=== PATIENT | female | born 1950 | race Caucasian/White ===

== ENCOUNTER 2022-05-13 10:53 | Inpatient (IN) | payer MEDICARE, OTHER, MEDICAID ==
[~2022-05-13] VITALS: Ht 152.4 cm; Wt 64.1 kg
[2022-05-13] MEDS ORDERED: SODIUM CHLORIDE 0.9% 1,000 ML IV ONE (20:30)
[2022-05-13] MEDS ORDERED: TEMAZEPAM 15 MG CAP PO PRN (21:30)
[2022-05-13] MEDS ORDERED: HYDROcodone-ACET 5/325MG TAB PO PRN (21:30)
[2022-05-13] MEDS ORDERED: cefTRIAXone 1GM/50ML D5W 50 ML IV ONE (21:30)
[2022-05-13] MEDS ORDERED: ONDANSETRON HCL 4 MG/2 ML VIAL IV PRN (21:30)
[2022-05-13] MEDS ORDERED: ACETAMINOPHEN 325 MG TAB PO PRN (21:30)
[2022-05-13 21:55] LABS: Albumin 3.2 g/dL (3.4-5.0); BUN/Creatinine Ratio 24.2; Calcium 9.9 mg/dL (8.5-10.1); Potassium 4.2 mmol/L (3.5-5.1)
[2022-05-13 21:57] LABS: Lactic Acid w/Reflex 4.1 mmol/L (0.4-2.0)
[2022-05-13 22:10] LABS: Bilirubin, Total 0.8 mg/dL (0.2-1.0); CRP High Sensitivity 3.38 mg/dL (< 0.3); Total Protein 8.2 g/dL (6.4-8.2)
[2022-05-14] MEDS: CLINDAMYCIN 600MG IV 50 ML IV SCH ×4 (00:21→22:29)
[2022-05-14 00:34] LABS: Basophils # (auto) 0 10 ^3/uL (0-0.2); Eosinophils # (auto) 0 10 ^3/uL (0-0.8); Eosinophils % (auto) 0.1 % (0.0-7.0); Monocytes # (auto) 0.6 10 ^3/uL (0-1.3); Red Cell Distribution Width 15.8 % (11.8-14.3)
[2022-05-14 00:35] LABS: Basophils % (auto) 0.1 % (0.0-2.0); Hematocrit 54.7 % (36.0-46.0); Hemoglobin 17.8 g/dL (12.2-16.2); Lymphocytes % (auto) 11.9 % (10.0-50.0); Mean Corpuscular Hemoglobin 29.1 pg (28.0-32.0); Mean Corpuscular Hgb Conc. 32.5 g/dL (32.0-36.0); Mean Corpuscular Volume 89.5 fL (80.0-100.0); Monocytes % (auto) 6.5 % (0.0-12.0); Neutrophils % (auto) 81.4 % (37.0-80.0); Nucleated Red Blood Cells % 0.1 %; Red Blood Cells 6.12 10^6/uL (4.0-5.20); White Blood Cell 8.6 10^3/uL (4.4-10.8)
[2022-05-14 07:11] LABS: Basophils # (auto) 0 10 ^3/uL (0-0.2); Basophils % (auto) 0.5 % (0.0-2.0); Eosinophils # (auto) 0 10 ^3/uL (0-0.8); Eosinophils % (auto) 0.3 % (0.0-7.0); Hematocrit 55.4 % (36.0-46.0); Hemoglobin 17.1 g/dL (12.2-16.2); Lymphocytes # (auto) 2.2 10 ^3/uL (0.4-5.4); Lymphocytes % (auto) 23.7 % (10.0-50.0); Mean Corpuscular Hemoglobin 28.8 pg (28.0-32.0); Mean Corpuscular Hgb Conc. 30.8 g/dL (32.0-36.0); Mean Corpuscular Volume 93.5 fL (80.0-100.0); Monocytes # (auto) 0.8 10 ^3/uL (0-1.3); Monocytes % (auto) 8.4 % (0.0-12.0); Neutrophils # (auto) 6.3 10 ^3/uL (1.6-8.6); Neutrophils % (auto) 67.1 % (37.0-80.0); Nucleated Red Blood Cells % 0.2 %; Red Blood Cells 5.93 10^6/uL (4.0-5.20); Red Cell Distribution Width 16.8 % (11.8-14.3); White Blood Cell 9.3 10^3/uL (4.4-10.8)
[2022-05-14 07:43] LABS: Anion Gap 7 (5-15); BUN/Creatinine Ratio 21.9; Blood Urea Nitrogen 14 mg/dL (7-18); Calcium 8.8 mg/dL (8.5-10.1); Carbon Dioxide 27 mmol/L (21-32); Chloride 109 mmol/L (98-107); GFR African American 117 mL/min; GFR Non-African American 97 mL/min; Glucose 93 mg/dL (74-106); Potassium 4.3 mmol/L (3.5-5.1); Sodium 143 mmol/L (136-145)
[2022-05-14] MEDS: ENOXAPARIN SOD 40 MG/0.4 ML SYRINGE SC SCH (09:52)
[2022-05-14 21:15] VITALS: BP 109/57
[2022-05-14] MEDS: cefTRIAXone 1GM/50ML D5W 50 ML IV SCH (21:53)
[2022-05-15] MEDS: CLINDAMYCIN 600MG IV 50 ML IV SCH ×3 (05:20→22:10)
[2022-05-15 09:00] VITALS: BP 108/54
[2022-05-15] MEDS: ENOXAPARIN SOD 40 MG/0.4 ML SYRINGE SC SCH (09:20)
[2022-05-15 13:00] VITALS: BP 103/58
[2022-05-15 15:55] VITALS: BP 117/69
[2022-05-15 16:50] VITALS: BP 117/69
[2022-05-15] MEDS: cefTRIAXone 1GM/50ML D5W 50 ML IV SCH (21:28)
[2022-05-15 22:00] VITALS: BP 144/80
[2022-05-16 04:53] VITALS: BP 137/76
[2022-05-16] MEDS: CLINDAMYCIN 600MG IV 50 ML IV SCH ×3 (05:20→21:35)
[2022-05-16] MEDS: ENOXAPARIN SOD 40 MG/0.4 ML SYRINGE SC SCH (08:44)
[2022-05-16 09:00] VITALS: BP 133/57
[2022-05-16 12:42] VITALS: BP 120/66
[2022-05-16 16:41] VITALS: BP 110/74
[2022-05-16] MEDS: Juven Fruit Punch Powder PACKET 28.8gm PO SCH (18:25)
[2022-05-16] MEDS: cefTRIAXone 1GM/50ML D5W 50 ML IV SCH (21:35)
[2022-05-16 22:00] VITALS: BP 134/66
[2022-05-17 05:00] VITALS: BP 138/77
[2022-05-17] MEDS: CLINDAMYCIN 600MG IV 50 ML IV SCH ×3 (05:16→21:05)
[2022-05-17 08:30] VITALS: BP 143/76
[2022-05-17] MEDS: ENOXAPARIN SOD 40 MG/0.4 ML SYRINGE SC SCH (09:15)
[2022-05-17] MEDS: Juven Fruit Punch Powder PACKET 28.8gm PO SCH ×2 (09:15→18:07)
[2022-05-17 12:30] VITALS: BP_SYST 134; BP_SYST 144; BP_DIAS 67; BP_DIAS 83
[2022-05-17] MEDS ORDERED: CLIN300C8 PO (12:50)
[2022-05-17 17:00] VITALS: BP 114/82
[2022-05-17] MEDS: cefTRIAXone 1GM/50ML D5W 50 ML IV SCH (20:25)
[2022-05-17 22:00] VITALS: BP 127/67
[2022-05-18 05:00] VITALS: BP 147/89
[2022-05-18] MEDS: CLINDAMYCIN 600MG IV 50 ML IV SCH ×3 (05:42→21:41)
[2022-05-18 08:00] VITALS: BP 152/78
[2022-05-18] MEDS: Juven Fruit Punch Powder PACKET 28.8gm PO SCH ×2 (09:12→18:09)
[2022-05-18] MEDS: ENOXAPARIN SOD 40 MG/0.4 ML SYRINGE SC SCH (09:18)
[2022-05-18 12:00] VITALS: BP 146/89
[2022-05-18 16:00] VITALS: BP 118/82
[2022-05-18] MEDS: cefTRIAXone 1GM/50ML D5W 50 ML IV SCH (20:24)
[2022-05-18 22:00] VITALS: BP 119/69
[2022-05-19 05:00] VITALS: BP 121/71
[2022-05-19] MEDS: CLINDAMYCIN 600MG IV 50 ML IV SCH ×3 (05:25→21:28)
[2022-05-19] MEDS: Juven Fruit Punch Powder PACKET 28.8gm PO SCH ×2 (08:41→19:00)
[2022-05-19 09:00] VITALS: BP 145/88
[2022-05-19] MEDS: ENOXAPARIN SOD 40 MG/0.4 ML SYRINGE SC SCH (09:06)
[2022-05-19 13:00] VITALS: BP 127/82
[2022-05-19 17:00] VITALS: BP 116/55
[2022-05-19] MEDS: cefTRIAXone 1GM/50ML D5W 50 ML IV SCH (21:27)
[2022-05-19 22:00] VITALS: BP 140/56
[2022-05-20 05:00] VITALS: BP 129/88
[2022-05-20] MEDS: CLINDAMYCIN 600MG IV 50 ML IV SCH ×3 (05:29→21:38)
[2022-05-20] MEDS: Juven Fruit Punch Powder PACKET 28.8gm PO SCH ×2 (08:30→18:10)
[2022-05-20 09:00] VITALS: BP 146/91
[2022-05-20] MEDS: ENOXAPARIN SOD 40 MG/0.4 ML SYRINGE SC SCH (09:54)
[2022-05-20 12:10] VITALS: BP 129/81
[2022-05-20 17:00] VITALS: BP 121/75
[2022-05-20] MEDS: cefTRIAXone 1GM/50ML D5W 50 ML IV SCH (21:02)
[2022-05-20 22:00] VITALS: BP 112/54
[2022-05-21 05:01] VITALS: BP 121/67
[2022-05-21] MEDS: CLINDAMYCIN 600MG IV 50 ML IV SCH ×3 (05:23→22:52)
[2022-05-21 08:35] VITALS: BP 115/73
[2022-05-21] MEDS: Juven Fruit Punch Powder PACKET 28.8gm PO SCH ×2 (09:41→18:00)
[2022-05-21] MEDS: ENOXAPARIN SOD 40 MG/0.4 ML SYRINGE SC SCH (09:42)
[2022-05-21 13:00] VITALS: BP 107/69
[2022-05-21 16:49] VITALS: BP 148/67
[2022-05-21] MEDS: cefTRIAXone 1GM/50ML D5W 50 ML IV SCH (21:31)
[2022-05-21 22:00] VITALS: BP 121/69
[2022-05-22 05:00] VITALS: BP 126/71
[2022-05-22] MEDS: CLINDAMYCIN 600MG IV 50 ML IV SCH (06:17)
[2022-05-22] MEDS: Juven Fruit Punch Powder PACKET 28.8gm PO SCH ×2 (08:10→18:25)
[2022-05-22 09:00] VITALS: BP 126/89
[2022-05-22] MEDS: ENOXAPARIN SOD 40 MG/0.4 ML SYRINGE SC SCH (10:16)
[2022-05-22 12:38] VITALS: BP 116/69
[2022-05-22 16:53] VITALS: BP 120/65
[2022-05-22] MEDS: cefTRIAXone 1GM/50ML D5W 50 ML IV SCH (21:12)
[2022-05-22 22:00] VITALS: BP 137/72
[2022-05-23 05:00] VITALS: BP 138/75
[2022-05-23] MEDS: Juven Fruit Punch Powder PACKET 28.8gm PO SCH ×2 (08:01→18:00)
[2022-05-23 09:00] VITALS: BP 136/78
[2022-05-23] MEDS: ENOXAPARIN SOD 40 MG/0.4 ML SYRINGE SC SCH (10:04)
[2022-05-23] MEDS ORDERED: CIPROFLOXACIN HCL 500 MG TAB PO ONE (11:30)
[2022-05-23 13:00] VITALS: BP 112/70
[2022-05-23 22:00] VITALS: BP 142/78
[2022-05-23] MEDS: CIPROFLOXACIN HCL 500 MG TAB PO SCH (22:52)
[2022-05-24 05:00] VITALS: BP 144/83
[2022-05-24 09:00] VITALS: BP 158/48
[2022-05-24] MEDS: Juven Fruit Punch Powder PACKET 28.8gm PO SCH ×2 (09:03→18:02)
[2022-05-24 09:37] VITALS: BP 145/82
[2022-05-24] MEDS: ENOXAPARIN SOD 40 MG/0.4 ML SYRINGE SC SCH (10:09)
[2022-05-24] MEDS: CIPROFLOXACIN HCL 500 MG TAB PO SCH ×2 (10:09→21:46)
[2022-05-24 13:00] VITALS: BP 122/76
[2022-05-24 16:40] VITALS: BP 122/76
[2022-05-24 22:00] VITALS: BP_SYST 133; BP_SYST 159; BP_DIAS 60; BP_DIAS 71
[2022-05-25 05:00] VITALS: BP 132/78
[2022-05-25] MEDS: Juven Fruit Punch Powder PACKET 28.8gm PO SCH ×2 (08:12→18:24)
[2022-05-25 09:00] VITALS: BP 118/59
[2022-05-25 09:57] LABS: Basophils # (auto) 0 10 ^3/uL (0-0.2); Basophils % (auto) 0.5 % (0.0-2.0); Eosinophils # (auto) 0.1 10 ^3/uL (0-0.8); Hematocrit 49.5 % (36.0-46.0); Hemoglobin 16.2 g/dL (12.2-16.2); Lymphocytes # (auto) 1.8 10 ^3/uL (0.4-5.4); Lymphocytes % (auto) 20.9 % (10.0-50.0); Mean Corpuscular Hemoglobin 29.1 pg (28.0-32.0); Mean Corpuscular Hgb Conc. 32.7 g/dL (32.0-36.0); Mean Corpuscular Volume 88.9 fL (80.0-100.0); Monocytes # (auto) 0.6 10 ^3/uL (0-1.3); Monocytes % (auto) 7.2 % (0.0-12.0); Neutrophils % (auto) 70.4 % (37.0-80.0); Nucleated Red Blood Cells % 0.1 %; Red Blood Cells 5.56 10^6/uL (4.0-5.20); Red Cell Distribution Width 15.5 % (11.8-14.3); White Blood Cell 8.6 10^3/uL (4.4-10.8)
[2022-05-25] MEDS: ENOXAPARIN SOD 40 MG/0.4 ML SYRINGE SC SCH (10:01)
[2022-05-25] MEDS: CIPROFLOXACIN HCL 500 MG TAB PO SCH ×2 (10:01→22:16)
[2022-05-25 10:11] LABS: Albumin 2.8 g/dL (3.4-5.0); Calcium 8.8 mg/dL (8.5-10.1); Potassium 3.9 mmol/L (3.5-5.1)
[2022-05-25 10:15] LABS: BUN/Creatinine Ratio 28.8; Bilirubin, Total 0.4 mg/dL (0.2-1.0); Total Protein 7.2 g/dL (6.4-8.2)
[2022-05-25 13:00] VITALS: BP 123/61
[2022-05-25 17:00] VITALS: BP 111/60
[2022-05-25 20:00] VITALS: BP 117/59
[2022-05-25 22:00] VITALS: BP 117/59
[2022-05-26 05:00] VITALS: BP 135/82
[2022-05-26] MEDS: Juven Fruit Punch Powder PACKET 28.8gm PO SCH ×2 (08:10→19:01)
[2022-05-26 09:00] VITALS: BP 118/71
[2022-05-26] MEDS: CIPROFLOXACIN HCL 500 MG TAB PO SCH ×2 (10:16→22:20)
[2022-05-26] MEDS: ENOXAPARIN SOD 40 MG/0.4 ML SYRINGE SC SCH (10:16)
[2022-05-26 13:00] VITALS: BP 108/62
[2022-05-26 17:00] VITALS: BP 102/39
[2022-05-26 20:00] VITALS: BP 120/75
[2022-05-26 22:00] VITALS: BP 120/75
[2022-05-27 05:00] VITALS: BP 114/69
[2022-05-27 09:00] VITALS: BP 140/73
[2022-05-27] MEDS: ENOXAPARIN SOD 40 MG/0.4 ML SYRINGE SC SCH (10:16)
[2022-05-27] MEDS: CIPROFLOXACIN HCL 500 MG TAB PO SCH ×2 (10:17→21:37)
[2022-05-27] MEDS: Juven Fruit Punch Powder PACKET 28.8gm PO SCH ×2 (10:18→18:19)
[2022-05-27 13:00] VITALS: BP 126/72
[2022-05-27 17:00] VITALS: BP 125/61
[2022-05-27 22:00] VITALS: BP 133/75
[2022-05-28 05:00] VITALS: BP 130/64
[2022-05-28] MEDS: Juven Fruit Punch Powder PACKET 28.8gm PO SCH ×2 (08:30→18:08)
[2022-05-28 09:10] VITALS: BP 111/61
[2022-05-28] MEDS: CIPROFLOXACIN HCL 500 MG TAB PO SCH ×2 (09:11→21:55)
[2022-05-28] MEDS: ENOXAPARIN SOD 40 MG/0.4 ML SYRINGE SC SCH (09:11)
[2022-05-28 13:30] VITALS: BP 102/56
[2022-05-28 16:30] VITALS: BP 121/67
[2022-05-28 22:00] VITALS: BP 111/58
[2022-05-29 05:00] VITALS: BP 132/75
[2022-05-29] MEDS: Juven Fruit Punch Powder PACKET 28.8gm PO SCH ×2 (08:00→18:13)
[2022-05-29 09:00] VITALS: BP 116/69
[2022-05-29] MEDS: ENOXAPARIN SOD 40 MG/0.4 ML SYRINGE SC SCH (09:23)
[2022-05-29] MEDS: CIPROFLOXACIN HCL 500 MG TAB PO SCH ×2 (09:23→22:02)
[2022-05-29 13:00] VITALS: BP 134/67
[2022-05-29 17:00] VITALS: BP 132/70
[2022-05-29 22:00] VITALS: BP 124/74
[2022-05-30 05:00] VITALS: BP 125/72
[2022-05-30 09:00] VITALS: BP 115/65
[2022-05-30] MEDS: Juven Fruit Punch Powder PACKET 28.8gm PO SCH ×2 (10:27→18:58)
[2022-05-30] MEDS: ENOXAPARIN SOD 40 MG/0.4 ML SYRINGE SC SCH (10:28)
[2022-05-30] MEDS: CIPROFLOXACIN HCL 500 MG TAB PO SCH ×2 (10:28→22:15)
[2022-05-30 13:00] VITALS: BP 130/76
[2022-05-30 17:00] VITALS: BP 142/86
[2022-05-30 22:00] VITALS: BP 130/74
[2022-05-31 05:00] VITALS: BP 119/72
[2022-05-31] MEDS: Juven Fruit Punch Powder PACKET 28.8gm PO SCH ×2 (08:24→18:00)
[2022-05-31 09:00] VITALS: BP 130/68
[2022-05-31] MEDS: CIPROFLOXACIN HCL 500 MG TAB PO SCH ×2 (09:49→22:22)
[2022-05-31] MEDS: ENOXAPARIN SOD 40 MG/0.4 ML SYRINGE SC SCH (09:50)
[2022-05-31 13:00] VITALS: BP 114/77
[2022-05-31 16:36] VITALS: BP 129/74
[2022-06-01] VITALS (7 sets, daily range): BP systolic 119–145; BP diastolic 57–88
[2022-06-01] MEDS: Juven Fruit Punch Powder PACKET 28.8gm PO SCH ×2 (08:00→18:00)
[2022-06-01] MEDS: ENOXAPARIN SOD 40 MG/0.4 ML SYRINGE SC SCH (09:20)
[2022-06-01] MEDS: CIPROFLOXACIN HCL 500 MG TAB PO SCH ×2 (09:21→22:32)
[2022-06-02 05:00] VITALS: BP 157/85
[2022-06-02] MEDS: Juven Fruit Punch Powder PACKET 28.8gm PO SCH ×2 (08:00→18:00)
[2022-06-02 09:00] VITALS: BP 122/62
[2022-06-02] MEDS: ENOXAPARIN SOD 40 MG/0.4 ML SYRINGE SC SCH (10:22)
[2022-06-02] MEDS: CIPROFLOXACIN HCL 500 MG TAB PO SCH ×2 (10:23→22:01)
[2022-06-02 17:00] VITALS: BP 128/73
[2022-06-02 20:00] VITALS: BP 131/90
[2022-06-02 22:00] VITALS: BP 131/90
[2022-06-03 05:00] VITALS: BP 113/68
[2022-06-03] MEDS: Juven Fruit Punch Powder PACKET 28.8gm PO SCH ×2 (08:00→18:00)
[2022-06-03 09:00] VITALS: BP 134/91
[2022-06-03] MEDS: CIPROFLOXACIN HCL 500 MG TAB PO SCH ×2 (10:11→22:27)
[2022-06-03 13:00] VITALS: BP 118/64
[2022-06-03 17:00] VITALS: BP 161/77
[2022-06-03 20:00] VITALS: BP 100/57
[2022-06-03 22:24] VITALS: BP 97/57
[2022-06-04 05:09] VITALS: BP 123/63
[2022-06-04] MEDS: Juven Fruit Punch Powder PACKET 28.8gm PO SCH ×2 (08:00→18:00)
[2022-06-04] MEDS: CIPROFLOXACIN HCL 500 MG TAB PO SCH ×2 (10:00→22:05)
[2022-06-04 12:57] VITALS: BP 113/66
[2022-06-04 17:00] VITALS: BP 134/68
[2022-06-04 22:00] VITALS: BP 130/80
[2022-06-05 05:00] VITALS: BP 120/66
[2022-06-05] MEDS: Juven Fruit Punch Powder PACKET 28.8gm PO SCH ×2 (08:46→17:39)
[2022-06-05 09:00] VITALS: BP 127/68
[2022-06-05] MEDS: CIPROFLOXACIN HCL 500 MG TAB PO SCH ×2 (10:09→22:00)
[2022-06-05 13:00] VITALS: BP 124/64
[2022-06-05 16:32] VITALS: BP 128/74
[2022-06-05 22:00] VITALS: BP 134/71
[2022-06-06 05:00] VITALS: BP 126/79
[2022-06-06 09:00] VITALS: BP 138/59
[2022-06-06] MEDS: Juven Fruit Punch Powder PACKET 28.8gm PO SCH ×2 (09:05→17:17)
[2022-06-06] MEDS: CIPROFLOXACIN HCL 500 MG TAB PO SCH ×2 (09:39→22:20)
[2022-06-06 13:00] VITALS: BP 147/84
[2022-06-06 17:00] VITALS: BP 118/60
[2022-06-06 22:00] VITALS: BP 123/54
[2022-06-07 04:55] VITALS: BP 120/72
[2022-06-07] MEDS: Juven Fruit Punch Powder PACKET 28.8gm PO SCH ×2 (08:00→18:00)
[2022-06-07 09:00] VITALS: BP 145/71
[2022-06-07] MEDS: CIPROFLOXACIN HCL 500 MG TAB PO SCH ×2 (10:10→21:15)
[2022-06-07 13:00] VITALS: BP 126/75
[2022-06-07 16:36] VITALS: BP 148/87
[2022-06-07 22:00] VITALS: BP 139/80
[2022-06-08 05:00] VITALS: BP 141/63
[2022-06-08 06:08] LABS: Basophils # (auto) 0 10 ^3/uL (0-0.2); Basophils % (auto) 0.7 % (0.0-2.0); Eosinophils # (auto) 0.2 10 ^3/uL (0-0.8); Eosinophils % (auto) 3.1 % (0.0-7.0); Hematocrit 49.7 % (36.0-46.0); Hemoglobin 16.8 g/dL (12.2-16.2); Lymphocytes # (auto) 2.2 10 ^3/uL (0.4-5.4); Lymphocytes % (auto) 37.5 % (10.0-50.0); Mean Corpuscular Hemoglobin 29.4 pg (28.0-32.0); Mean Corpuscular Hgb Conc. 33.7 g/dL (32.0-36.0); Mean Corpuscular Volume 87.1 fL (80.0-100.0); Monocytes # (auto) 0.5 10 ^3/uL (0-1.3); Monocytes % (auto) 8.7 % (0.0-12.0); Nucleated Red Blood Cells % 0.2 %; Red Blood Cells 5.71 10^6/uL (4.0-5.20); Red Cell Distribution Width 15.3 % (11.8-14.3); White Blood Cell 5.9 10^3/uL (4.4-10.8)
[2022-06-08 06:22] LABS: BUN/Creatinine Ratio 18.2; Calcium 8.8 mg/dL (8.5-10.1); Potassium 3.6 mmol/L (3.5-5.1)
[2022-06-08] MEDS: Juven Fruit Punch Powder PACKET 28.8gm PO SCH ×2 (08:00→18:00)
[2022-06-08 09:00] VITALS: BP 138/81
[2022-06-08] MEDS: CIPROFLOXACIN HCL 500 MG TAB PO SCH ×2 (09:10→21:38)
[2022-06-08 13:00] VITALS: BP 141/88
[2022-06-08 17:00] VITALS: BP 136/79
[2022-06-08 22:00] VITALS: BP 139/76
[2022-06-09 05:00] VITALS: BP 152/80
[2022-06-09] MEDS: Juven Fruit Punch Powder PACKET 28.8gm PO SCH ×2 (08:17→18:00)
[2022-06-09 09:00] VITALS: BP 132/74
[2022-06-09] MEDS: CIPROFLOXACIN HCL 500 MG TAB PO SCH ×2 (09:45→21:30)
[2022-06-09 13:00] VITALS: BP 124/80
[2022-06-09 17:00] VITALS: BP 127/72
[2022-06-09 22:00] VITALS: BP 127/70
[2022-06-10 05:00] VITALS: BP 142/74
[2022-06-10 08:46] VITALS: BP_SYST 130; BP_SYST 156; BP_DIAS 60; BP_DIAS 74
[2022-06-10] MEDS: CIPROFLOXACIN HCL 500 MG TAB PO SCH (10:08)
[2022-06-10] MEDS: Juven Fruit Punch Powder PACKET 28.8gm PO SCH ×2 (10:09→18:02)
[2022-06-10 13:03] VITALS: BP 149/79
[2022-06-10 16:17] VITALS: BP 124/63
[2022-06-10 22:00] VITALS: BP 122/70
[2022-06-11 05:00] VITALS: BP 114/57
[2022-06-11 08:45] VITALS: BP 131/72
[2022-06-11] MEDS: Juven Fruit Punch Powder PACKET 28.8gm PO SCH ×2 (09:15→18:00)
[2022-06-11 13:00] VITALS: BP 129/71
[2022-06-11 17:20] VITALS: BP 142/63
[2022-06-11 22:00] VITALS: BP_SYST 128; BP_SYST 74; BP_DIAS 71
[2022-06-12 05:00] VITALS: BP 130/82
[2022-06-12 09:00] VITALS: BP 153/84
[2022-06-12 12:37] VITALS: BP 136/79
[2022-06-12 16:58] VITALS: BP 153/82
[2022-06-12] MEDS: Juven Fruit Punch Powder PACKET 28.8gm PO SCH (18:44)
[2022-06-12 21:26] VITALS: BP 158/83
[2022-06-12 21:40] VITALS: BP 147/75
[2022-06-13 05:00] VITALS: BP 112/56
[2022-06-13 08:00] VITALS: BP 145/77
[2022-06-13] MEDS: Juven Fruit Punch Powder PACKET 28.8gm PO SCH ×2 (08:00→18:00)
[2022-06-13 09:00] VITALS: BP 145/77
[2022-06-13 13:00] VITALS: BP 147/68
[2022-06-13 17:00] VITALS: BP 137/79
[2022-06-13 21:51] VITALS: BP 133/91
[2022-06-14 04:51] VITALS: BP 116/76
[2022-06-14 09:00] VITALS: BP 146/76
[2022-06-14] MEDS: Juven Fruit Punch Powder PACKET 28.8gm PO SCH ×2 (09:31→18:14)
[2022-06-14 12:52] VITALS: BP 140/96
[2022-06-14 17:00] VITALS: BP 139/85
[2022-06-14 22:00] VITALS: BP 124/70
[2022-06-15 05:00] VITALS: BP 143/71
[2022-06-15 09:00] VITALS: BP 141/79
[2022-06-15] MEDS: Juven Fruit Punch Powder PACKET 28.8gm PO SCH ×2 (09:18→17:23)
[2022-06-15 13:00] VITALS: BP 118/58
[2022-06-15 17:00] VITALS: BP 145/89
[2022-06-15 19:40] VITALS: BP 143/78
[2022-06-15 23:03] VITALS: BP 143/78
[2022-06-16 05:08] VITALS: BP 141/88
[2022-06-16] MEDS: Juven Fruit Punch Powder PACKET 28.8gm PO SCH ×2 (08:18→18:28)
[2022-06-16 08:54] VITALS: BP 119/59
[2022-06-16 17:00] VITALS: BP 120/65
[2022-06-16 22:00] VITALS: BP 134/78
[2022-06-17 05:00] VITALS: BP 137/78
[2022-06-17 09:00] VITALS: BP 123/68
[2022-06-17] MEDS: Juven Fruit Punch Powder PACKET 28.8gm PO SCH ×2 (09:12→18:31)
[2022-06-17 12:36] VITALS: BP 141/72
[2022-06-17 17:00] VITALS: BP 130/70
[2022-06-17 22:00] VITALS: BP 127/78
[2022-06-18 05:00] VITALS: BP 132/68
[2022-06-18 08:42] VITALS: BP 146/75
[2022-06-18] MEDS: Juven Fruit Punch Powder PACKET 28.8gm PO SCH ×2 (09:07→17:58)
[2022-06-18 13:00] VITALS: BP 134/74
[2022-06-18 16:38] VITALS: BP 154/87
[2022-06-18 18:16] VITALS: BP 144/64
[2022-06-18 22:00] VITALS: BP 143/82
[2022-06-19 05:05] VITALS: BP 132/83
[2022-06-19] MEDS: Juven Fruit Punch Powder PACKET 28.8gm PO SCH ×2 (08:38→18:53)
[2022-06-19 16:31] VITALS: BP 133/60
[2022-06-19 16:57] LABS: Basophils # (auto) 0.1 10 ^3/uL (0-0.2); Basophils % (auto) 1.2 % (0.0-2.0); Eosinophils # (auto) 0.1 10 ^3/uL (0-0.8); Eosinophils % (auto) 2.3 % (0.0-7.0); Hematocrit 50.1 % (36.0-46.0); Hemoglobin 16.9 g/dL (12.2-16.2); Lymphocytes # (auto) 2.2 10 ^3/uL (0.4-5.4); Mean Corpuscular Hemoglobin 29.8 pg (28.0-32.0); Mean Corpuscular Hgb Conc. 33.7 g/dL (32.0-36.0); Mean Corpuscular Volume 88.5 fL (80.0-100.0); Monocytes # (auto) 0.5 10 ^3/uL (0-1.3); Monocytes % (auto) 7.7 % (0.0-12.0); Neutrophils # (auto) 3.5 10 ^3/uL (1.6-8.6); Neutrophils % (auto) 54.8 % (37.0-80.0); Nucleated Red Blood Cells % 0.5 %; Red Blood Cells 5.66 10^6/uL (4.0-5.20); Red Cell Distribution Width 15.1 % (11.8-14.3); White Blood Cell 6.3 10^3/uL (4.4-10.8)
[2022-06-19 17:32] LABS: Albumin 2.9 g/dL (3.4-5.0); Calcium 8.5 mg/dL (8.5-10.1); Potassium 3.9 mmol/L (3.5-5.1)
[2022-06-19 17:37] LABS: BUN/Creatinine Ratio 25.4; Bilirubin, Total 0.5 mg/dL (0.2-1.0); Total Protein 7.1 g/dL (6.4-8.2)
[2022-06-19 22:00] VITALS: BP 134/81
[2022-06-20 04:21] VITALS: BP 131/86
[2022-06-20] MEDS: Juven Fruit Punch Powder PACKET 28.8gm PO SCH ×2 (07:45→18:18)
[2022-06-20 07:59] VITALS: BP 123/85
[2022-06-20 09:00] VITALS: BP 123/85
[2022-06-20 13:00] VITALS: BP 128/76
[2022-06-20 16:23] VITALS: BP 149/90
[2022-06-20 22:00] VITALS: BP 172/96
[2022-06-20] MEDS ORDERED: hydrALAZINE HCL 20 MG/ML VL IV PRN (23:00)
[2022-06-21] VITALS (7 sets, daily range): BP systolic 123–152; BP diastolic 77–91
[2022-06-21] MEDS: Juven Fruit Punch Powder PACKET 28.8gm PO SCH ×2 (09:17→17:55)
[2022-06-22 05:00] VITALS: BP 115/78
[2022-06-22] MEDS: Juven Fruit Punch Powder PACKET 28.8gm PO SCH ×2 (08:00→18:31)
[2022-06-22 09:00] VITALS: BP 148/89
[2022-06-22 13:00] VITALS: BP 96/75
[2022-06-22 16:57] VITALS: BP 143/67
[2022-06-22 22:00] VITALS: BP 145/88
[2022-06-23 05:00] VITALS: BP_SYST 130; BP_SYST 139; BP_DIAS 70; BP_DIAS 75
[2022-06-23] MEDS: Juven Fruit Punch Powder PACKET 28.8gm PO SCH ×2 (08:00→16:40)
[2022-06-23 09:00] VITALS: BP 130/69
[2022-06-23 13:00] VITALS: BP 123/59
[2022-06-23 17:00] VITALS: BP 142/67
[2022-06-23 22:00] VITALS: BP 112/66
[2022-06-24 05:00] VITALS: BP_SYST 106; BP_SYST 139; BP_DIAS 69; BP_DIAS 91
[2022-06-24] MEDS: Juven Fruit Punch Powder PACKET 28.8gm PO SCH ×2 (08:08→17:43)
[2022-06-24 09:00] VITALS: BP 136/88
[2022-06-24 13:00] VITALS: BP 133/91
[2022-06-24 17:00] VITALS: BP 123/77
[2022-06-24 22:00] VITALS: BP 135/83
[2022-06-25 05:00] VITALS: BP 106/58
[2022-06-25 09:00] VITALS: BP 122/73
[2022-06-25] MEDS: Juven Fruit Punch Powder PACKET 28.8gm PO SCH ×2 (10:00→18:10)
[2022-06-25 13:00] VITALS: BP 109/66
[2022-06-25 17:00] VITALS: BP 140/68
[2022-06-25 22:00] VITALS: BP 147/68
[2022-06-26 05:00] VITALS: BP 159/90
[2022-06-26] MEDS: Juven Fruit Punch Powder PACKET 28.8gm PO SCH ×2 (08:00→17:50)
[2022-06-26 08:30] VITALS: BP 156/87
[2022-06-26 12:30] VITALS: BP 124/70
[2022-06-26 16:52] VITALS: BP 129/68
[2022-06-26 22:00] VITALS: BP 156/94
[2022-06-27 05:00] VITALS: BP 133/74
[2022-06-27 06:23] LABS: Basophils # (auto) 0.1 10 ^3/uL (0-0.2); Basophils % (auto) 0.9 % (0.0-2.0); Eosinophils # (auto) 0.1 10 ^3/uL (0-0.8); Eosinophils % (auto) 2.4 % (0.0-7.0); Hematocrit 46.2 % (36.0-46.0); Hemoglobin 15.8 g/dL (12.2-16.2); Lymphocytes # (auto) 2.8 10 ^3/uL (0.4-5.4); Lymphocytes % (auto) 50.8 % (10.0-50.0); Mean Corpuscular Hemoglobin 29.4 pg (28.0-32.0); Mean Corpuscular Hgb Conc. 34.2 g/dL (32.0-36.0); Monocytes # (auto) 0.4 10 ^3/uL (0-1.3); Monocytes % (auto) 6.3 % (0.0-12.0); Neutrophils # (auto) 2.2 10 ^3/uL (1.6-8.6); Neutrophils % (auto) 39.6 % (37.0-80.0); Nucleated Red Blood Cells % 0.3 %; Red Blood Cells 5.38 10^6/uL (4.0-5.20); Red Cell Distribution Width 14.8 % (11.8-14.3); White Blood Cell 5.5 10^3/uL (4.4-10.8)
[2022-06-27 06:29] LABS: Calcium 9.2 mg/dL (8.5-10.1)
[2022-06-27 06:31] LABS: BUN/Creatinine Ratio 29.1
[2022-06-27] MEDS: Juven Fruit Punch Powder PACKET 28.8gm PO SCH ×2 (08:00→18:00)
[2022-06-27 09:00] VITALS: BP_SYST 123; BP_SYST 135; BP_DIAS 69; BP_DIAS 71
[2022-06-27 13:00] VITALS: BP 120/76
[2022-06-27 17:00] VITALS: BP 124/68
[2022-06-27 22:00] VITALS: BP 120/73
[2022-06-28 05:00] VITALS: BP 138/90
[2022-06-28] MEDS: Juven Fruit Punch Powder PACKET 28.8gm PO SCH ×2 (08:01→18:18)
[2022-06-28 09:00] VITALS: BP 123/74
[2022-06-28 13:00] VITALS: BP 112/58
[2022-06-28 17:00] VITALS: BP 142/73
[2022-06-28 22:00] VITALS: BP 120/72
[2022-06-29 04:58] VITALS: BP 142/77
[2022-06-29] MEDS: Juven Fruit Punch Powder PACKET 28.8gm PO SCH ×2 (08:00→18:23)
[2022-06-29 08:32] VITALS: BP 130/75
[2022-06-29 12:52] VITALS: BP 149/81
[2022-06-29 16:47] VITALS: BP 146/81
[2022-06-29 22:00] VITALS: BP 122/67
[2022-06-30 05:00] VITALS: BP 121/64
[2022-06-30] MEDS: Juven Fruit Punch Powder PACKET 28.8gm PO SCH ×2 (08:00→18:00)
[2022-06-30 09:00] VITALS: BP 127/78
[2022-06-30 13:00] VITALS: BP 123/70
[2022-06-30 16:46] VITALS: BP 122/77
[2022-06-30 22:13] VITALS: BP 112/71
[2022-07-01] VITALS (7 sets, daily range): BP systolic 100–143; BP diastolic 55–80
[2022-07-01] MEDS: Juven Fruit Punch Powder PACKET 28.8gm PO SCH ×2 (07:45→18:13)
[2022-07-02 05:00] VITALS: BP 103/50
[2022-07-02 08:00] VITALS: BP 109/67
[2022-07-02] MEDS: Juven Fruit Punch Powder PACKET 28.8gm PO SCH ×2 (08:14→18:28)
[2022-07-02 12:00] VITALS: BP 125/81
[2022-07-02 16:00] VITALS: BP 116/76
[2022-07-02 20:00] VITALS: BP 126/74
[2022-07-02 22:00] VITALS: BP 110/69
[2022-07-03] VITALS (7 sets, daily range): BP systolic 109–137; BP diastolic 62–77
[2022-07-03] MEDS: Juven Fruit Punch Powder PACKET 28.8gm PO SCH ×2 (07:30→17:40)
[2022-07-04] VITALS (7 sets, daily range): BP systolic 102–137; BP diastolic 62–80
[2022-07-04] MEDS: Juven Fruit Punch Powder PACKET 28.8gm PO SCH ×2 (08:00→18:00)
[2022-07-05 05:00] VITALS: BP 128/70
[2022-07-05] MEDS: Juven Fruit Punch Powder PACKET 28.8gm PO SCH ×2 (08:00→18:00)
[2022-07-05 09:00] VITALS: BP 144/83
[2022-07-05 13:00] VITALS: BP 135/82
[2022-07-05 17:00] VITALS: BP 122/71
[2022-07-05 22:00] VITALS: BP 157/82
[2022-07-06 02:00] VITALS: BP 148/71
[2022-07-06 05:00] VITALS: BP 116/73
[2022-07-06] MEDS: Juven Fruit Punch Powder PACKET 28.8gm PO SCH ×2 (08:00→18:00)
[2022-07-06 09:00] VITALS: BP 126/77
[2022-07-06 13:00] VITALS: BP 124/73
[2022-07-06 17:00] VITALS: BP 134/81
[2022-07-06 22:00] VITALS: BP 128/73
[2022-07-07 04:59] VITALS: BP 139/71
[2022-07-07] MEDS: Juven Fruit Punch Powder PACKET 28.8gm PO SCH ×2 (07:50→19:31)
[2022-07-07 09:00] VITALS: BP 124/69
[2022-07-07 13:00] VITALS: BP_SYST 153; BP_SYST 154; BP_DIAS 67; BP_DIAS 73
[2022-07-07 16:39] VITALS: BP 112/74
[2022-07-07 22:00] VITALS: BP 108/63
[2022-07-08 05:00] VITALS: BP 123/59
[2022-07-08] MEDS: Juven Fruit Punch Powder PACKET 28.8gm PO SCH ×2 (08:00→18:00)
[2022-07-08 09:00] VITALS: BP 144/84
[2022-07-08 13:00] VITALS: BP 111/67
[2022-07-08 17:00] VITALS: BP 105/65
[2022-07-08 22:00] VITALS: BP 106/48
[2022-07-09 05:00] VITALS: BP 139/65
[2022-07-09] MEDS: Juven Fruit Punch Powder PACKET 28.8gm PO SCH ×2 (08:00→18:00)
[2022-07-09 09:00] VITALS: BP 111/62
[2022-07-09 12:35] VITALS: BP 120/66
[2022-07-09 16:57] VITALS: BP 138/67
[2022-07-09 22:00] VITALS: BP 129/56
[2022-07-10 05:00] VITALS: BP 140/75
[2022-07-10 08:00] VITALS: BP 120/66
[2022-07-10] MEDS: Juven Fruit Punch Powder PACKET 28.8gm PO SCH ×2 (08:00→18:00)
[2022-07-10 09:00] VITALS: BP 120/66
[2022-07-10 13:00] VITALS: BP 125/78
[2022-07-10 16:44] VITALS: BP 126/77
[2022-07-10 22:00] VITALS: BP 114/68
[2022-07-11 05:00] VITALS: BP 141/84
[2022-07-11] MEDS: Juven Fruit Punch Powder PACKET 28.8gm PO SCH ×2 (07:46→17:46)
[2022-07-11 08:00] VITALS: BP 120/66
[2022-07-11 08:34] VITALS: BP 137/54
[2022-07-11 12:38] VITALS: BP 145/46
[2022-07-11 15:00] VITALS: BP 132/76
[2022-07-11 22:00] VITALS: BP 153/113
[2022-07-12] MEDS ORDERED: ACETAMINOPHEN 325 MG TAB PO PRN (00:15)
[2022-07-12] MEDS ORDERED: ONDANSETRON HCL 4 MG/2 ML VIAL IV PRN (00:15)
[2022-07-12] MEDS ORDERED: hydrALAZINE HCL 20 MG/ML VL IV PRN (00:15)
[2022-07-12 04:39] VITALS: BP 128/70
[2022-07-12] MEDS: Juven Fruit Punch Powder PACKET 28.8gm PO SCH ×2 (07:47→18:00)
[2022-07-12 08:00] VITALS: BP 120/66
[2022-07-12 09:00] VITALS: BP 116/57
[2022-07-12 12:53] VITALS: BP 134/81
[2022-07-12 16:40] VITALS: BP 107/67
[2022-07-12 22:00] VITALS: BP 121/68
[2022-07-13 05:00] VITALS: BP 117/57
[2022-07-13] MEDS: Juven Fruit Punch Powder PACKET 28.8gm PO SCH ×2 (08:26→18:00)
[2022-07-13 09:00] VITALS: BP 125/69
[2022-07-13 13:00] VITALS: BP 125/68
[2022-07-13 17:00] VITALS: BP 132/75
[2022-07-13 21:22] VITALS: BP 112/65
[2022-07-14 04:29] VITALS: BP 102/82
[2022-07-14] MEDS: Juven Fruit Punch Powder PACKET 28.8gm PO SCH ×2 (08:00→17:26)
[2022-07-14 09:00] VITALS: BP_SYST 132; BP_SYST 137; BP_DIAS 50; BP_DIAS 69
[2022-07-14 13:00] VITALS: BP_SYST 118; BP_SYST 128; BP_DIAS 43; BP_DIAS 62
[2022-07-14 16:48] VITALS: BP 122/76
[2022-07-14 21:33] VITALS: BP 118/58
[2022-07-15 04:22] VITALS: BP 139/79
[2022-07-15 08:00] VITALS: BP 120/70
[2022-07-15] MEDS: Juven Fruit Punch Powder PACKET 28.8gm PO SCH ×2 (08:00→17:40)
[2022-07-15 09:00] VITALS: BP 120/70
[2022-07-15 13:00] VITALS: BP 125/81
[2022-07-15 16:42] VITALS: BP 129/70
[2022-07-15 22:00] VITALS: BP 119/79
[2022-07-16 05:00] VITALS: BP 138/77
[2022-07-16] MEDS: Juven Fruit Punch Powder PACKET 28.8gm PO SCH ×2 (08:00→18:00)
[2022-07-16 09:00] VITALS: BP_SYST 127; BP_SYST 146; BP_DIAS 50; BP_DIAS 70
[2022-07-16 13:00] VITALS: BP 146/45
[2022-07-16 16:22] VITALS: BP 141/76
[2022-07-16 22:12] VITALS: BP 95/58
[2022-07-17 04:46] VITALS: BP 134/63
[2022-07-17] MEDS: Juven Fruit Punch Powder PACKET 28.8gm PO SCH (08:00)
[2022-07-17 09:00] VITALS: BP 107/67
[2022-07-17 13:00] VITALS: BP 140/66
[2022-07-17 16:36] VITALS: BP 106/59
[2022-07-17 20:10] VITALS: BP 138/59
[2022-07-17 22:00] VITALS: BP 138/59
[2022-07-18 05:00] VITALS: BP 127/79
[2022-07-18 08:00] VITALS: BP 123/72
[2022-07-18 09:00] VITALS: BP 123/72
[2022-07-18 13:00] VITALS: BP 131/71
[2022-07-18 17:00] VITALS: BP 123/77
[2022-07-18 22:00] VITALS: BP 127/71
[2022-07-19 05:00] VITALS: BP 113/65
[2022-07-19 07:30] VITALS: BP 123/72
[2022-07-19 08:36] VITALS: BP 98/60
[2022-07-19 13:00] VITALS: BP 116/70
[2022-07-19 16:58] VITALS: BP 107/57
[2022-07-19 22:00] VITALS: BP 105/60
[2022-07-20 05:00] VITALS: BP 115/70
[2022-07-20 07:30] VITALS: BP 123/72
[2022-07-20 08:10] VITALS: BP 113/60
[2022-07-20 12:10] VITALS: BP 116/68
[2022-07-20 16:20] VITALS: BP 113/62
[2022-07-20 20:00] VITALS: BP 116/78
[2022-07-21] VITALS (7 sets, daily range): BP systolic 106–143; BP diastolic 52–84
[2022-07-22 05:00] VITALS: BP 116/60
[2022-07-22 08:30] VITALS: BP 123/76
[2022-07-22 12:30] VITALS: BP 143/75
[2022-07-22 16:37] VITALS: BP 139/76
[2022-07-22 22:00] VITALS: BP 105/55
[2022-07-23 05:00] VITALS: BP 115/26
[2022-07-23 09:00] VITALS: BP 116/62
[2022-07-23 12:32] VITALS: BP 129/76
[2022-07-23 17:00] VITALS: BP 116/70
[2022-07-23 22:00] VITALS: BP 108/60
[2022-07-24 04:48] VITALS: BP 114/72
[2022-07-24 09:00] VITALS: BP 127/70
[2022-07-24 16:48] VITALS: BP 132/78
[2022-07-24 19:50] VITALS: BP 115/72
[2022-07-24 22:00] VITALS: BP 115/80
[2022-07-25 05:00] VITALS: BP 108/52
[2022-07-25 08:15] VITALS: BP 115/72
[2022-07-25 09:00] VITALS: BP 123/76
== END 2022-07-25 11:15 | disposition home health service (06) | DRG 383 ==
LOC: EDBD 10:53 → ER 10:53 → OVERFLOW 21:29 → WEST WING 05-14 21:05 → UNDODISIN 06-16 14:50
PROVIDERS: ADMIT Nurse Practitioner; ATTEND Internal Medicine Pulmonary Disease
DX: L03.115 Cellulitis of right lower limb (principal); G82.20 Paraplegia, unspecified; E44.0 Moderate protein-calorie malnutrition; S81.801A Unspecified open wound, right lower leg, initial encounter; L03.116 Cellulitis of left lower limb; I87.8 Other specified disorders of veins; R26.2 Difficulty in walking, not elsewhere classified; S81.802A Unspecified open wound, left lower leg, initial encounter; R53.81 Other malaise; Z20.822 Contact with and (suspected) exposure to COVID-19; W18.39XA Other fall on same level, initial encounter; Y93.89 Activity, other specified; Y92.89 Other specified places as the place of occurrence of the external cause; Z59.00 Homelessness unspecified; Z74.01 Bed confinement status; Y99.8 Other external cause status; Z68.27 Body mass index [BMI] 27.0-27.9, adult
CPT/HCPCS: 36415; 71045; 73700; 80048; 80053; 83605; 83880; 85025; 86141; 87040; 87077; 87081; 87186; 87205; 87426; 93970; 97110; 97116; 97163; 97530; G0378; J0696; J3490